=== PATIENT | male | born 1955 | race Caucasian/White ===

== ENCOUNTER 2021-12-17 20:14 | Emergency (ER) | payer MEDICARE, SELFPAY ==
[2021-12-17 20:57] VITALS: BP 118/72; PULSE 79; RESP 16; TEMP 36.8; O2SAT 99
--- NOTE | 2021-12-17 21:15 | PC.NURSE ---
Pt to desk reporting that they want to leave and do not want to wait any longer. Pt encouraged to return if symptoms worsen at home. Pt in no obvious distress on departure.
== END 2021-12-17 21:23 | disposition left against medical advice (07) ==
LOC: ANHED 21:22
PROVIDERS: PCP Internal Medicine
DX: M54.9 Dorsalgia, unspecified (principal)
CPT/HCPCS: 99199

== ENCOUNTER 2023-12-07 11:18 | Outpatient (CLI) | payer MEDICARE, SELFPAY ==
[2023-12-07 11:53] LABS: Basophils Percent Auto 0.2 % (0.2-1.2); Eosinophils Absolute Auto 0.2 K/mm3 (0-0.3); Eosinophils Percent Auto 1.9 % (0-4.4); Hematocrit 44.7 % (42.0-52.0); Hemoglobin 15.1 g/dL (14.0-18.0); Immature Granulocyte Absolute 0.02 K/mm3 (0.00-0.031); Immature Granulocyte Percent A 0.2 % (0-0.5); Lymphocytes Absolute Auto 1.85 K/mm3 (0.9-3.2); Lymphocytes Percent Auto 21.7 % (18.3-44.2); Mean Corpuscular HGB Conc 33.8 g/dl (32-36); Mean Corpuscular Hemoglobin 30.6 pg (26-34); Mean Corpuscular Volume 90.5 fl (80-100); Mean Platelet Volume 9.9 fl (7.4-10.4); Monocytes Absolute Auto 0.8 K/mm3 (0.1-0.6); Monocytes Percent Auto 9.2 % (2.6-8.5); Neutrophils Absolute Auto 5.7 K/mm3 (1.3-6.7); Neutrophils Percent Auto 66.8 % (45.5-73.1); Platelet Count Result 235 k/mm3 (150-375); Red Blood Count 4.94 M/mm3 (4.6-6.20); Red Cell Distribution Width 12.8 % (11.5-14.5); White Blood Count 8.5 K/mm3 (4.5-10.0)
[2023-12-07 17:16] LABS: Alanine Aminotransferase 19 U/L (6-50); Albumin Level 4.5 g/dL (3.5-5.1); Alkaline Phosphatase 77 U/L (38-126); Anion Gap 7 mmol/L (8-16); Aspartate Amino Transferase 23 U/L (17-59); Bilirubin,Total 0.7 mg/dL (0.2-1.3); Blood Urea Nitrogen 15 mg/dL (9-20); CRP < 0.5 mg/dL (<1.0); Calcium 9.6 mg/dL (8.4-10.2); Carbon Dioxide 27 mmol/L (22-30); Chloride 104 mmol/L (98-107); Estimated Glomerular Filt Rate > 60; Glucose 93 mg/dL (65-110); Sodium 138 mmol/L (137-145)
[2023-12-07 17:17] LABS: Erythrocyte Sedimentation Rate 5 mm/hr (0-20)
[2023-12-09 13:16] LABS: Immunoglobulin A 250 mg/dL (70-400); Immunoglobulin G 995 mg/dL (700-1600); Immunoglobulin M 92 mg/dL (40-230)
[2023-12-09 21:01] LABS: Kappa\\Lambda Light Chains 1.24 (0.26-1.65); Lambda Light Chain 13.3 mg/L (5.7-26.3)
[2023-12-10 09:00] LABS: Albumin 4.2 g/dL (3.8-4.8); Alpha 1 Globulin 0.3 g/dL (0.2-0.3); Alpha 2 Globulin 0.7 g/dL (0.5-0.9); Beta 1 Globulin 0.4 g/dL (0.4-0.6); Gamma Globulin 0.9 g/dL (0.8-1.7); Protein, Total 6.9 g/dL (6.1-8.1)
== END 2023-12-07 11:19 | disposition home or self-care (01) ==
PROVIDERS: PCP Internal Medicine; Visit Provider Internal Medicine Hematology & Oncology
DX: D72.829 Elevated white blood cell count, unspecified (principal); R77.9 Abnormality of plasma protein, unspecified
CPT/HCPCS: 36415; 80053; 82784; 83883; 84155; 84165; 85025; 85652; 86140; 88184

== ENCOUNTER 2024-03-12 15:29 | Outpatient (CLI) | payer MEDICARE, SELFPAY ==
[2024-03-12 17:02] LABS: Strep Group A RT-PCR NOT DETECTED (Negative)
[2024-03-12 17:14] LABS: Influenza A QL RT-PCR Negative (Negative); Influenza B QL RT-PCR Negative (Negative); RSV RNA, RT-PCR Negative (Negative); SARS-CoV-2 RNA PCR Positive (Negative)
== END 2024-03-12 15:30 | disposition home or self-care (01) ==
PROVIDERS: PCP Internal Medicine; Visit Provider Internal Medicine
DX: U07.1 COVID-19 (principal)
CPT/HCPCS: 87637; 87651

== ENCOUNTER 2025-06-12 09:50 | Outpatient (CLI) | payer MEDICARE, SELFPAY ==
--- NOTE | ~2025-06-12 | XR_ITS ---
Examination: XR shoulder RT min 2V Clinical History: fall 2 wks ago resulting in anterior rt shoulder pain Comparison: None Technique: 4 views right shoulder Findings/impression: 1. No fracture or dislocation right shoulder. 2. Mild degenerative changes glenohumeral joint. 3. Mild degenerative changes AC joint. Reviewed, dictated and finalized at location R.
== END 2025-06-12 09:51 | disposition home or self-care (01) ==
LOC: MICIMG 09:52
PROVIDERS: PCP Internal Medicine; Visit Provider Internal Medicine
DX: M19.011 Primary osteoarthritis, right shoulder (principal)
CPT/HCPCS: 73030